=== PATIENT | female | born 1955 | race Caucasian/White ===

== ENCOUNTER → 2017-01-12 | Outpatient (REF) | LOC: LAB 10:29 | DX: E11.8 Type 2 diabetes mellitus with unspecified complications (principal); I10 Essential (primary) hypertension ==

== ENCOUNTER → 2017-04-15 | Outpatient (REF) | LOC: LAB 08:54 | DX: M17.11 Unilateral primary osteoarthritis, right knee (principal) ==

== ENCOUNTER → 2017-12-03 | Outpatient (CLI) | payer SELFPAY ==
[2017-12-03 09:02] LABS: ALBUMIN 3.8 g/dL (3.5-5.0); BUN/CREATININE RATIO 21.4 (6.0-26.0); CALCIUM 9.1 mg/dL (8.4-10.2); POTASSIUM 3.2 mmol/L (3.6-5.0); TOTAL BILIRUBIN 0.5 mg/dL (0.2-1.3); TOTAL PROTEIN 6.9 g/dL (6.3-8.2)
== END ==
LOC: LAB 08:28
PROVIDERS: Medical Genetics Clinical Genetics (M.D.)
DX: E11.9 Type 2 diabetes mellitus without complications (principal); I10 Essential (primary) hypertension

== ENCOUNTER 2019-10-30 11:52 | Emergency (ER) | payer SELFPAY ==
[~2019-10-30] VITALS: Ht 162.6 cm; Wt 122.7 kg
[2019-10-30] MEDS ORDERED: HYDROCHLOROTHIA1 T15 PO (12:35)
[2019-10-30] MEDS ORDERED: AMLODIPINE BES2.5 MG PO (12:35)
[2019-10-30] MEDS ORDERED: GLUCOTROL 5M5 MG/TAB PO (12:35)
[2019-10-30] MEDS ORDERED: LANTUS PEN100 U/ML SQ (12:37)
[2019-10-30] MEDS ORDERED: INSULIN HUMA100 U/ML SQ (12:37)
[2019-10-30 13:02] LABS: EOS # 0.2 (0.04-0.40); EOS % 2.9 % (1.0-5.0); HEMATOCRIT 41.8 % (37.0-47.0); HEMOGLOBIN 14.2 g/dL (12.5-16.0); MEAN CELL VOLUME 92 fl (78-100); MEAN CORPUSCULAR HEMOGLOBIN 31 pg (27-31); MEAN CORPUSCULAR HGB CONC 34 g/dL (33-37); MEAN PLATELET VOLUME 11.3 fl (7.4-10.4); MONO # 0.6 (0.20-0.80); NEU # 5.5 (1.40-6.50); PLATELET COUNT 234 K/mm3 (130-400); RED BLOOD COUNT 4.56 M/mm3 (4.10-5.30); RED CELL DISTRIBUTION WIDTH 12.3 % (11.5-14.5); WHITE BLOOD COUNT 8.3 K/mm3 (4.8-10.8)
[2019-10-30 13:05] LABS: ALBUMIN 4.1 g/dL (3.4-4.8); POTASSIUM 3.7 mmol/L (3.5-5.1)
[2019-10-30 13:06] LABS: SODIUM 136 mmol/L (136-145)
[2019-10-30 13:07] LABS: CALCIUM 9.8 mg/dL (8.3-10.5)
[2019-10-30 13:08] LABS: GLUCOSE 244 mg/dL (65-105); TOTAL PROTEIN 6.9 g/dL (6.2-8.1)
[2019-10-30 13:09] LABS: CARBON DIOXIDE 25 mmol/L (23-31)
[2019-10-30 13:10] LABS: TOTAL BILIRUBIN 0.3 mg/dL (0.2-1.2)
[2019-10-30 13:14] LABS: ALT/SGPT 24 U/L (0-55)
[2019-10-30 13:17] LABS: AST-SGOT 13 U/L (5-34)
[2019-10-30 13:21] LABS: TROPONIN-I < 0.03 ng/mL (<0.030)
[2019-10-30 13:27] LABS: D-DIMER 0.73 mg/L FEU (0.15-0.50)
[2019-10-30 13:40] LABS: URINE APPEARANCE CLEAR; URINE COLOR YELLOW
[2019-10-30 13:41] LABS: URINE BILIRUBIN NEGATIVE (NEGATIVE); URINE BLOOD NEGATIVE (NEGATIVE); URINE KETONE NEGATIVE (NEGATIVE); URINE LEUKOCYTE ESTERASE NEGATIVE (NEGATIVE); URINE MUCUS PRESENT (NOT PRESENT); URINE NITRATE NEGATIVE (NEGATIVE); URINE PROTEIN(semi-quant) TRACE mg/dL (NEGATIVE); URINE UROBILINOGEN NORMAL (NORMAL)
[2019-10-30 16:13] VITALS: BP 163/87
== END 2019-10-30 16:13 | disposition home or self-care (01) ==
LOC: ED 11:52
PROVIDERS: Nurse Practitioner
DX: R07.89 Other chest pain (principal); R60.0 Localized edema; R06.02 Shortness of breath; E11.9 Type 2 diabetes mellitus without complications; I10 Essential (primary) hypertension; I48.91 Unspecified atrial fibrillation; Z79.4 Long term (current) use of insulin; Z90.49 Acquired absence of other specified parts of digestive tract
CPT/HCPCS: Q9967

== ENCOUNTER → 2021-05-23 | Outpatient (CLI) | payer MEDICARE, BC ==
[~2021-05-23] MED LIST: AMLODIPINE BES2.5 MG PO; GLUCOTROL 5M5 MG/TAB PO; HYDROCHLOROTHIA1 T15 PO; INSULIN HUMA100 U/ML SQ; LANTUS PEN100 U/ML SQ
[2021-05-23 11:15] LABS: POTASSIUM 4.3 mmol/L (3.5-5.1)
[2021-05-23 11:16] LABS: CALCIUM 10.6 mg/dL (8.3-10.5)
== END ==
LOC: LAB 10:33
PROVIDERS: Family Medicine
DX: I10 Essential (primary) hypertension (principal)

== ENCOUNTER → 2021-07-18 | Outpatient (CLI) | payer MEDICARE, BC ==
[2021-07-18 11:27] LABS: POTASSIUM 4.6 mmol/L (3.5-5.1)
[2021-07-18 11:28] LABS: CALCIUM 10.2 mg/dL (8.3-10.5)
== END ==
LOC: LAB 10:31
PROVIDERS: Family Medicine
DX: E13.42 Other specified diabetes mellitus with diabetic polyneuropathy (principal); R06.09 Other forms of dyspnea

== ENCOUNTER → 2021-08-15 | Outpatient (CLI) | payer MEDICARE, BC | LOC: LAB 08:49 | DX: E13.42 Other specified diabetes mellitus with diabetic polyneuropathy (principal) ==

== ENCOUNTER → 2021-09-25 | Outpatient (CLI) | payer MEDICARE, BC ==
[2021-09-25 10:19] LABS: BASO # 0.06 K/mm3 (0.02-0.10); EOS # 0.26 K/mm3 (0.04-0.40); EOS % 3.2 % (1.0-5.0); HEMATOCRIT 38.6 % (37.0-47.0); HEMOGLOBIN 12.7 g/dL (12.5-16.0); LYMPH# 1.84 K/mm3 (1.50-4.00); MEAN CELL VOLUME 97 fl (78-100); MEAN CORPUSCULAR HEMOGLOBIN 32 pg (27-31); MEAN CORPUSCULAR HGB CONC 33 g/dL (33-37); MEAN PLATELET VOLUME 10.9 fl (7.4-10.4); MONO # 0.58 K/mm3 (0.20-0.80); NEU # 5.44 K/mm3 (1.40-6.50); PLATELET COUNT 259 K/mm3 (130-400); RED CELL DISTRIBUTION WIDTH 12.6 % (11.5-14.5); WHITE BLOOD COUNT 8.2 K/mm3 (4.8-10.8)
[2021-09-25 10:48] LABS: POTASSIUM 3.8 mmol/L (3.5-5.1)
[2021-09-25 10:50] LABS: CALCIUM 9.4 mg/dL (8.3-10.5)
[2021-09-25 17:00] LABS: ALBUMIN 3.9 g/dL (3.4-4.8)
[2021-09-25 17:03] LABS: TOTAL PROTEIN 6.8 g/dL (6.2-8.1)
[2021-09-25 17:05] LABS: TOTAL BILIRUBIN 0.4 mg/dL (0.2-1.2)
== END ==
LOC: LAB 10:08
PROVIDERS: Internal Medicine Interventional Cardiology
DX: Z01.812 Encounter for preprocedural laboratory examination (principal); Z11.52 Encounter for screening for COVID-19; R94.39 Abnormal result of other cardiovascular function study; Z20.822 Contact with and (suspected) exposure to COVID-19

== ENCOUNTER → 2021-11-10 | Outpatient (CLI) | payer MEDICARE, BC ==
[2021-11-10 10:27] LABS: POTASSIUM 4.8 mmol/L (3.5-5.1)
[2021-11-10 10:28] LABS: CALCIUM 10.2 mg/dL (8.3-10.5)
[2021-11-10 10:29] LABS: TOTAL PROTEIN 6.8 g/dL (6.2-8.1)
[2021-11-10 10:31] LABS: TOTAL BILIRUBIN 0.5 mg/dL (0.2-1.2)
[2021-11-10 10:35] LABS: DIRECT BILIRUBIN 0.2 mg/dL (0.0-0.5)
== END ==
LOC: LAB 09:29
PROVIDERS: Family Medicine
DX: E13.42 Other specified diabetes mellitus with diabetic polyneuropathy (principal); E78.00 Pure hypercholesterolemia, unspecified; E78.5 Hyperlipidemia, unspecified; G47.09 Other insomnia; R60.0 Localized edema; R06.09 Other forms of dyspnea

== ENCOUNTER → 2021-11-14 | Outpatient (CLI) | payer MEDICARE, BC | LOC: LAB 11:04 | DX: E13.42 Other specified diabetes mellitus with diabetic polyneuropathy (principal); E78.00 Pure hypercholesterolemia, unspecified; E13.22 Other specified diabetes mellitus with diabetic chronic kidney disease; N18.30 Chronic kidney disease, stage 3 unspecified; I25.10 Atherosclerotic heart disease of native coronary artery without angina pectoris ==

== ENCOUNTER → 2022-03-23 | Outpatient (CLI) | payer MEDICARE, BC | LOC: LAB 09:54 | DX: I25.10 Atherosclerotic heart disease of native coronary artery without angina pectoris (principal); N18.30 Chronic kidney disease, stage 3 unspecified; E78.00 Pure hypercholesterolemia, unspecified; E13.42 Other specified diabetes mellitus with diabetic polyneuropathy; R60.0 Localized edema ==

== ENCOUNTER → 2022-07-10 | Outpatient (CLI) | payer MEDICARE, BC ==
[2022-07-10 09:40] LABS: ALBUMIN 3.9 g/dL (3.4-4.8)
[2022-07-10 09:41] LABS: CALCIUM 9.5 mg/dL (8.3-10.5)
[2022-07-10 09:43] LABS: TOTAL PROTEIN 6.5 g/dL (6.2-8.1)
[2022-07-10 09:44] LABS: TOTAL BILIRUBIN 0.3 mg/dL (0.2-1.2)
[2022-07-10 10:35] LABS: BASO # 0.03 K/mm3 (0.02-0.10); EOS # 0.16 K/mm3 (0.04-0.40); HEMATOCRIT 38.6 % (37.0-47.0); HEMOGLOBIN 12.4 g/dL (12.5-16.0); LYMPH# 2.06 K/mm3 (1.50-4.00); MEAN CELL VOLUME 99 fl (78-100); MEAN CORPUSCULAR HEMOGLOBIN 32 pg (27-31); MEAN CORPUSCULAR HGB CONC 32 g/dL (33-37); MEAN PLATELET VOLUME 11.6 fl (7.4-10.4); MONO # 0.47 K/mm3 (0.20-0.80); NEU # 5.14 K/mm3 (1.40-6.50); PLATELET COUNT 248 K/mm3 (130-400); RED CELL DISTRIBUTION WIDTH 12.1 % (11.5-14.5); WHITE BLOOD COUNT 7.9 K/mm3 (4.8-10.8)
== END ==
LOC: LAB 09:04
PROVIDERS: Internal Medicine Interventional Cardiology
DX: Z13.29 Encounter for screening for other suspected endocrine disorder (principal); I50.32 Chronic diastolic (congestive) heart failure; R63.5 Abnormal weight gain; E13.42 Other specified diabetes mellitus with diabetic polyneuropathy

== ENCOUNTER → 2022-09-01 | Outpatient (CLI) | payer MEDICARE, BC | LOC: RAD 10:27 → MAMMO 10:27 | DX: M81.0 Age-related osteoporosis without current pathological fracture (principal) ==

== ENCOUNTER → 2022-09-01 | Outpatient (CLI) | payer MEDICARE, BC | LOC: MAMMO 10:24 | DX: Z12.31 Encounter for screening mammogram for malignant neoplasm of breast (principal) ==

== ENCOUNTER → 2022-10-06 | Outpatient (CLI) | payer MEDICARE, BC ==
[2022-10-06 09:15] LABS: HEMATOCRIT 41.9 % (37.0-47.0); HEMOGLOBIN 13.8 g/dL (12.5-16.0); MEAN PLATELET VOLUME 10.8 fl (7.4-10.4); RED BLOOD COUNT 4.26 M/mm3 (4.10-5.30); RED CELL DISTRIBUTION WIDTH 12.7 % (11.5-14.5); WHITE BLOOD COUNT 7.6 K/mm3 (4.8-10.8)
[2022-10-06 09:20] LABS: POTASSIUM 4.1 mmol/L (3.5-5.1)
[2022-10-06 09:22] LABS: CALCIUM 9.6 mg/dL (8.3-10.5)
== END ==
LOC: LAB 09:01
DX: R60.0 Localized edema (principal)

== ENCOUNTER → 2022-10-28 | Outpatient (CLI) | payer MEDICARE, BC | LOC: LAB 14:07 | DX: B34.9 Viral infection, unspecified (principal) ==

== ENCOUNTER → 2022-11-20 | Outpatient (CLI) | payer MEDICARE, BC ==
[2022-11-20 09:52] LABS: ALBUMIN 4.1 g/dL (3.4-4.8)
[2022-11-20 09:53] LABS: POTASSIUM 4.1 mmol/L (3.5-5.1)
[2022-11-20 09:54] LABS: CALCIUM 10.3 mg/dL (8.3-10.5)
[2022-11-20 09:55] LABS: TOTAL PROTEIN 7.1 g/dL (6.2-8.1)
[2022-11-20 09:57] LABS: TOTAL BILIRUBIN 0.4 mg/dL (0.2-1.2)
== END ==
LOC: LAB 09:22
PROVIDERS: Internal Medicine Interventional Cardiology
DX: I50.32 Chronic diastolic (congestive) heart failure (principal)

== ENCOUNTER → 2023-04-07 | Outpatient (CLI) | payer MEDICARE, BC ==
[2023-04-07 09:30] LABS: ALBUMIN 4.1 g/dL (3.4-4.8); POTASSIUM 4.4 mmol/L (3.5-5.1)
[2023-04-07 09:31] LABS: CALCIUM 9.9 mg/dL (8.3-10.5)
[2023-04-07 09:33] LABS: TOTAL PROTEIN 7.1 g/dL (6.2-8.1)
[2023-04-07 09:34] LABS: TOTAL BILIRUBIN 0.5 mg/dL (0.2-1.2)
== END ==
LOC: LAB 08:59
PROVIDERS: Family Medicine
DX: E13.42 Other specified diabetes mellitus with diabetic polyneuropathy (principal)

== ENCOUNTER → 2023-08-03 | Outpatient (CLI) | payer MEDICARE, BC ==
[2023-08-03 10:14] LABS: CALCIUM 8.7 mg/dL (8.3-10.5)
== END ==
LOC: LAB 09:33
DX: E11.65 Type 2 diabetes mellitus with hyperglycemia (principal)

== ENCOUNTER → 2023-12-10 | Outpatient (CLI) | payer MEDICARE, BC ==
[2023-12-10 08:55] LABS: ALBUMIN 4.1 g/dL (3.4-4.8)
[2023-12-10 08:57] LABS: CALCIUM 9.8 mg/dL (8.3-10.5)
[2024-01-18 19:19] LABS: CREATININE OTHER SOURCE 105.8
== END ==
LOC: LAB 08:24
DX: E11.65 Type 2 diabetes mellitus with hyperglycemia (principal); E11.42 Type 2 diabetes mellitus with diabetic polyneuropathy; E78.5 Hyperlipidemia, unspecified

== ENCOUNTER → 2024-03-20 | Outpatient (CLI) | payer MEDICARE, BC ==
[2024-03-20 09:30] LABS: ALBUMIN 4.1 g/dL (3.4-4.8)
[2024-03-20 09:33] LABS: TOTAL PROTEIN 7.3 g/dL (6.2-8.1)
[2024-03-20 09:35] LABS: TOTAL BILIRUBIN 0.4 mg/dL (0.2-1.2)
== END ==
LOC: LAB 09:00
DX: E11.65 Type 2 diabetes mellitus with hyperglycemia (principal); E11.22 Type 2 diabetes mellitus with diabetic chronic kidney disease; N18.30 Chronic kidney disease, stage 3 unspecified; E78.5 Hyperlipidemia, unspecified

== ENCOUNTER → 2024-06-28 | Outpatient (CLI) | payer MEDICARE, BC ==
[2024-06-28 09:49] LABS: CALCIUM 9.7 mg/dL (8.3-10.5)
== END ==
LOC: LAB 08:47
PROVIDERS: Internal Medicine Interventional Cardiology
DX: I50.32 Chronic diastolic (congestive) heart failure (principal)

== ENCOUNTER → 2024-06-28 | Outpatient (CLI) | payer MEDICARE, BC ==
[2024-06-28 09:15] LABS: ALBUMIN 3.9 g/dL (3.4-4.8)
[2024-06-28 09:17] LABS: CALCIUM 9.6 mg/dL (8.3-10.5)
== END ==
LOC: LAB 08:43
PROVIDERS: Nurse Practitioner
DX: E11.65 Type 2 diabetes mellitus with hyperglycemia (principal); E11.22 Type 2 diabetes mellitus with diabetic chronic kidney disease; N18.30 Chronic kidney disease, stage 3 unspecified